=== PATIENT | female | born 1950 | race Caucasian/White ===

== ENCOUNTER 2017-06-01 10:25 | Outpatient (CLI) | payer MEDICARE ==
--- NOTE | 2017-06-01 16:21 | RAD ---
LUMBAR SPINE 3 VIEWS: DATE: 06/01/17. FINDINGS: Osteophytes are seen anteriorly at all levels, most prominence at L2-3. There is minimal to no disk space narrowing. No fracture or area of bony destruction was seen. The SI joints appear normal. IMPRESSION: Generalized mild degenerative change. POS: HOME
== END 2017-06-01 10:26 | disposition home or self-care (01) ==
LOC: BURRAD 10:25
PROVIDERS: ATTEND Family Medicine
DX: M54.5 Low back pain (principal); M47.896 Other spondylosis, lumbar region
CPT/HCPCS: 72100

== ENCOUNTER 2017-12-18 11:46 | Outpatient (CLI) | payer MEDICARE, OTHER ==
--- NOTE | 2017-12-18 20:37 | RAD ---
RIGHT HIP TWO VIEWS: 12/18/17 No fracture, dislocation, or hip joint space narrowing was seen. The articular surfaces are smooth. T he adjacent pubic ring appears intact. IMPRESSION: No significant findings. POS: HOME
--- NOTE | 2017-12-18 20:38 | RAD ---
LEFT HIP TWO VIEWS: 12/18/17 Comparison is made with the right hip. There are no significant findings. The joint space is not narr owed. No fracture was seen. The articular surfaces are smooth. IMPRESSION: No acute findings. POS: HOME
== END 2017-12-18 11:47 | disposition home or self-care (01) ==
LOC: BURRAD 11:46
PROVIDERS: ATTEND Family Medicine
DX: M25.551 Pain in right hip (principal)